=== PATIENT | male | born 1950 | race Caucasian/White ===

== ENCOUNTER → 2016-09-07 | Outpatient (CLI) | payer OTHER ==
--- NOTE | 2016-09-18 16:38 | EEG Procedure Note ---
EEG Procedure Note Date of Service Sep 07, 2016. Start / End Times Start Time: 09/07/16 @ 9:05am End Time: 09/09/16 @ 7:12am Referring Physician BETSY Hughes History 65 year old male with seizure like episodes. Ambulatory EEG for further evaluation of seizure etiology Pertinent home meds: Lino Description This is a 21 electrode Ambulatory EEG with a single channel dedicated to limited EKG. The electrodes were placed in accordance with the International 10- 20 system. At the start of the recording the patient was in an awake state. The background was well organized and composed of symmetric mixed alpha and beta frequencies. There was a well formed symmetric moderate amplitude posterior dominant rhythm of 9-10 Hz that was reactive to eye opening and closure. Sleep was indicated by vertex waves and symmetric sleep spindles. Patient journal was reviewed and the patient reported 1 clinical episode of numb feeling in head for a few seconds at 10:55am on 09/07/16. EEG was carefully reviewed before and after reported clinical event. There was noted to be intermittent T4 electrode pop artifact, but otherwise there was no changes to the normal awake background on EEG. Of note, 30min before and after reported event, the patient appeared to be in stage 2 sleep on EEG. Interpretation This is a normal 48hr ambulatory EEG There was no electrographic seizures or epileptiform discharges. Clinical Correlation Single clinical event of "feeling numb in head" for a few seconds did not have any EEG correlation. Patient did appear to be in stage 2 sleep 30min before and after clinical event. Clinical correlation required. A normal EEG does not rule out epilepsy if there is a strong clinical suspicion or for clinical events not captured.
== END | disposition home or self-care (01) ==
LOC: C.NEUR 08:36
PROVIDERS: ATTEND Psychiatry & Neurology Neurology
DX: G40.509 Epileptic seizures related to external causes, not intractable, without status epilepticus (principal)

== ENCOUNTER → 2017-11-06 | Day surgery (SDC) | payer OTHER ==
[2017-10-20 11:55] VITALS: Ht 175.3 cm; Wt 95.5 kg
[~2017-11-06] VITALS: Ht 175.3 cm; Wt 95.5 kg
[~2017-11-06] MED LIST: 500ML BSSPLUS 0.5ML EPI1:1000 IRRIG ONE; ACETAMINOPHEN 325 MG TAB PO PRN; ASPI81TA28 PO; ATOR-24 PO; ATROPINE SULFATE 0.1 MG/ML 5ML SYR IV PRN; BSS FLUSH ONE; BUPIVACAINE HCL 0.75% 10 ML AMP/VIAL ONE; CEFAZOLIN SOD 1 GM VIAL ONE; DEXAMETHASONE SOD INJ 4 MG/ML VIAL ONE; EpHEDrine SULFATE INJ 50 MG/ML AMP IV PRN; EpINEphrine INJ 1MG/ML AMP 1 MG/ML AMP ONE; FENTANYL CITRATE INJ 50 MCG/1 ML 2 ML VIAL IV PRN; FENTANYL CITRATE INJ 50 MCG/1 ML 2 ML VIAL ONE; HYALURONIDASE HUMAN 150 UNIT/ML INJ ONE; INDOCYANINE GREEN 25 MG/10 ML ONE; LACTATED RINGER'S 1000ML 500 ML IV SCH; LEVE750T PO; LIDOCAINE HCL 2% 2 ML VIAL (20MG/ML) ONE; MAGN400T6 PO; METO25TA56 PO; MIDAZOLAM HCL 1 MG/ML 2ML VIAL ONE; NEOMYCIN/POLYMYX/DEXAMETH OP OINT PER APP CHARGE ONE; NYSTCRE11 TOP; OCUCOAT 1 ML SOLN IO ONE; ONDANSETRON INJ 2 MG/ML 2 ML VIAL IV PRN; ONDANSETRON INJ 2 MG/ML 2 ML VIAL ONE; POVIDONE-IODINE OP SOLN (SURGERY CNTR CHARGING ONLY) ONE; PROPARACAINE 0.5% OP SOLN PER DROP CHARGE OPL SCH; PROPOFOL IV EMULSION 10 MG/ML 20 ML VIAL ONE; SACC250C11 PO; TIMOLOL MALEATE 0.5% OP SOLN PER DROP CHARGE ONE
[2017-11-06] MEDS: PHENYLEPHRINE HCL 2.5% OP SOLN PER DROP CHARGE OPL SCH ×2 (08:10→08:15)
[2017-11-06] MEDS: TROPICAMIDE 1% OP SOLN PER DROP CHARGE OPL SCH ×2 (08:11→08:16)
--- NOTE | 2017-11-06 08:42 | History & Physical Bridge - SC ---
H&P Re-Evaluation Bridge Note: Pt has lamellar macular hole left eye and is having vitrectomy left eye. I have examined the patient, reviewed the History & Physical and in the interval since the performance of the History & Physical I have noted the following changes of clinical significance: No changes noted
--- NOTE | 2017-11-06 09:46 | [facility] Operative Report ---
Operative Report Date of Service November 06, 2017. Operative Report PREOPERATIVE DIAGNOSIS: Lamellar macular hole, left eye. ICD10 CODE: H35.342 POSTOPERATIVE DIAGNOSIS: same. PROCEDURE: 1. Pars plana vitrectomy, 23 gauge. 2. Membrane peeling of the internal limiting membrane. 3. Fluid-air exchange. 4. Air-gas exchange w/ SF6 20 %. All to the left eye. CPT CODE: 26043 SURGEON: Pete Morton D.O. COMPLICATIONS: None. ESTIMATED BLOOD LOSS: None. SPECIMENS: None. ANESTHESIA: Retrobulbar block and MAC. INDICATIONS FOR PROCEDURE: The patient has a macular hole that is visually significant. Vitrectomy surgery is indicated to decrease risk of vision loss and potentially improve vision. CONSENT: The risks, benefits and alternatives were discussed with the patient including but not limited to decreased visual acuity, failure to achieve desired results, loss of the eye, infection, pain, glaucoma, lens changes, retinal tears, retinal detachment, the need for more procedures, drooping of the eyelid, blindness, and double vision. The patient is aware of risks and consents to the surgery. Consent is signed and on the chart. OPERATION AND FINDINGS: The patient was brought to the operating room where the patient was identified by name, date, and medical record number. The surgical site was confirmed with the informed written consent. The patient was sedated by the anesthesiology team after which a 50:50 mixture of 2% lidocaine and 0.75% bupivacaine with hyaluronidase was administered in a standard retrobulbar fashion. A total of 4 ml was administered without difficulty. The patient was then prepped and draped in the usual sterile manner for retinal surgery. A wire lid speculum was placed and an Boo 23-gauge trocar cannula system was employed. The inferior temporal trocar cannula was first placed in an angled fashion 3.75mm posterior to the surgical limbus and the infusion cannula was inserted into this cannula after which the intravitreal position was verified prior to turning the infusion on. Two more trocar cannulas were then inserted in an angled fashion, one in the superior temporal, and one in the superior nasal quadrant both 3.75mm posterior to the surgical limbus. A light pipe and vitrector were then introduced into the eye and the BIOM wide angle viewing system was brought into place. Standard core vitrectomy was performed and the vitreous was insured to be totally detached from the posterior pole with the aid of the vitrector. Next 0.05ml of indocyanine green was placed over the macular surface to stain the internal limiting membrane. This was washed from the eye after 10 seconds. At this point a flat contact lens was placed on the surface of the eye and a flex scraper and ILM forceps were then used to gently peel the internal limiting membrane surrounding the macular hole without difficulty. At this point scleral depression was performed for 360 degrees and no retinal tears or detachments were noted. A soft tip cannula was used to perform a fluid- air exchange. Next, SF6 20% was injected in through the infusion cannula for a complete gas fill of the eye. The trocar cannulas were then removed and found to be air tight. The intraocular pressure was found to be within normal limits by palpation and subconjunctival injections of Kefzol and dexamethasone were administered inferiorly and superiorly. The wire lid speculum was removed. Maxitrol and timolol were applied to the surface of the eye. A light patch and shield were taped over the surface of the eye and the patient left the Operating Room in stable condition having tolerated the procedure well. DISPOSITION: A gas bracelet was placed on the patients wrist. The patient was instructed to maintain a face down position overnight. The patient is to call immediately if there are any problems overnight. I attest to the content of the Intraoperative Record and any orders documented therein. Any exceptions are noted below.
--- NOTE | 2017-11-06 09:47 | Discharge Instructions-SurgCtr ---
Discharge Instructions Date of Service November 06, 2017. Visit Reason for Visit: Left Eye lamellar macular hole Discharge Discharge Diagnosis / Problem: same Discharge Goals Goal(s): Improve function Medications Stopped Medications Name(s): Aspirin stopped 10-25-17 Activity Recommendations Activity Limitations: per Instructions/Follow-up section Anesthesia . Post Anesthesia Instructions: If you have had General Anesthesia or IV Sedation: * Do not drive today. * Resume driving when surgeon permits. * Do not make important decisions or sign legal documents today. * Call surgeon for: 1. Temperature elevations greater than 101 degrees F. 2. Uncontrollable pain. 3. Excessive bleeding. 4. Persistent nausea and vomiting. 5. Medication intolerance (nausea, vomiting or rash). * For nausea and vomiting use only clear liquids such as: tea, soda, bouillon until nausea subsides, then gradually increase diet as tolerated. * If you have any concerns or questions, call your surgeon's office. If physician is unavailable and it is an emergency, call 911 or go to the nearest emergency room. . Instructions / Follow-Up Instructions / Follow-Up * May take Tylenol if needed for discomfort. * Do NOT lay flat on back and position head as follows: chin down as much as possible. Sleep right side down. * Do NOT remove green bracelet until instructed to do so by your surgeon and follow these precautions: * No air travel * No travel above 2500 feet * No nitrous oxide (N2O). * Do NOT remove eye shield. * NO straining, heavy lifting (>15 pounds) or bending below waist. * Avoid getting water or soap directly into operative eye. * Do NOT rub eye. If you experience increasing eye pain not relieved by medication, please contact us immediately at [phone]. If you are unable to reach someone at the above number, call [phone] and ask to speak with the EYE DOCTOR GEOSCIENCES ASSOCIATE PROFESSOR. Inform them that you are a Dr. Morton patient who had recent surgery. Diet Recommendations Home Diet: resume previous diet Procedures Procedures Performed: Left Eye 23 Gauge Vitrectomy, Membrane Peeling, SF6 Gas Insertion Pending Studies Studies pending at discharge: no Medical Emergencies . Who to Call and When: Medical Emergencies: If at any time you feel your situation is an emergency, please call 911 immediately. . Non-Emergent Contact Non-Emergency issues call your: Frame [employer]er . . "Provider Documentation" section prepared by Pete Morton. .
[2017-11-06 09:54] VITALS: TEMP 36.4
[2017-11-06 10:52] VITALS: BP 122/79; PULSE 51; O2SAT 96
--- NOTE | 2017-11-06 11:04 | Anesthesia Progress Nt - [facility] ---
Anesthesia Post Op Note Date & Time November 06, 2017 at 11:04 Vital Signs Pain Intensity: 0 Vital Signs Past 12 Hours Date Time Temp Pulse Resp B/P (MAP) Pulse Ox O2 Delivery O2 Flow Rate FiO2 11/06/17 10:52 51 18 122/79 (93) 96 Room Air 11/06/17 10:27 53 16 124/81 (95) 96 Room Air 11/06/17 09:54 36.4 58 20 139/94 (109) 94 Room Air 11/06/17 08:04 36.2 57 16 142/88 (106) 95 Room Air Notes Mental Status: alert / awake / arousable, participated in evaluation Pt Amnestic to Procedure: Yes Nausea / Vomiting: adequately controlled Pain: adequately controlled Airway Patency, RR, SpO2: stable & adequate BP & HR: stable & adequate Hydration State: stable & adequate Anesthetic Complications: no major complications apparent
== END | disposition home or self-care (01) ==
LOC: X.SURG 07:36
PROVIDERS: ATTEND Ophthalmology
DX: H35.342 Macular cyst, hole, or pseudohole, left eye (principal); E78.5 Hyperlipidemia, unspecified; G40.909 Epilepsy, unspecified, not intractable, without status epilepticus; I25.2 Old myocardial infarction; I10 Essential (primary) hypertension; I25.10 Atherosclerotic heart disease of native coronary artery without angina pectoris; Z88.5 Allergy status to narcotic agent; Z79.82 Long term (current) use of aspirin